=== PATIENT | male | born 1985 | race Caucasian/White ===

== ENCOUNTER 2016-12-17 11:45 | Emergency (ER) | payer OTHER ==
--- NOTE | 2016-12-19 15:53 | NUR ---
Received SAD person referral. Pt went to [facility] for mental health treatment.
--- NOTE | 2016-12-20 13:18 | ER ---
ADMIT: 12/17/2016 RM/LOC: ER [facility] MR#: [id number] [facility] [address] [place], [place] [address] [address] [place] [address] Emergency Room Report SEX: M AGE: 31 : 1985 DATE: 12/17/2016 HISTORY OF PRESENT ILLNESS: The patient is a 31-year-old male, who was brought in by his , despondent behavior, worse depression. This is the anniversary of a best friend's suicide that he blames himself for the suicide as his friend before he committed suicide tried to get a hold of him and was unable to, so this is pretty clear in his mind. His brought him in and he is willing to get psych care after he called the [place] Hotline asking for help. Of course, the hotline sent him to the emergency room at [place] to get evaluated. We did contact the police who were here to speak with patient and his . He is very cooperative throughout the whole admission. He does not have a plan. He denies a plan. He denies an attempt in the past but he has these thoughts he said, flashbacks for when he was in the [place], serving and the thoughts of suicide that come to his head and he can get rid of it. He says it has been going on for the last 5 years but is worse now that he remembers his friend and he blames himself for his friend's . PAST MEDICAL HISTORY: Kidney stones. MEDICATIONS: He had used: 1. Flexeril. 2. Gabapentin. 3. Hydrocodone. 4. Pantoprazole. 5. Prazosin. 6. Tamsulosin. 7. Sucralfate. ALLERGIES: HE HAS NO ALLERGIES. SOCIAL HISTORY: He is . Denies smoking. He says he has some issues with left leg as far as pain and that is why he takes pain medication. PHYSICAL EXAMINATION: VITAL SIGNS: Blood pressure 174/87 with heart rate of ADMIT: 12/17/2016 RM/LOC: ER [facility] MR#: [id number] [address] [address] [address] [place] [address] Emergency Room Report SEX: M AGE: 31 : 1985 87, respirations 18, temp is 98.6, O2 sats 97%. GENERAL: A very pleasant, a little bit of anxiety, oriented x4. See T-sheet for the physical examination. LABS: EPC labs were done. Hemoglobin 13.1, hematocrit is 38.1. Chemistry is normal. UA; specific gravity of 1.001. TSH 1.37 with free T4 of 1.18. Aspirin less than 1.7 with acetaminophen 2.0. Toxicology negative. ETOH none. ASSESSMENT: Suicidal ideation, chronic depression. Dr. Rimma Espinosa at the [facility] in [place] accept the patient. Documentation to follow up with the patient. He will be going via ambulance. KIZZY Gar / Leonid Snow MD / modl JOB #: [id number] CC: Leonid Snow MD, Attending Physician [facility] Physician, Family Physician
== END 2016-12-17 15:45 ==
LOC: ER 11:45
DX: R45.851 Suicidal ideations (principal); F32.9 Major depressive disorder, single episode, unspecified; Z87.442 Personal history of urinary calculi; Z79.899 Other long term (current) drug therapy

== ENCOUNTER 2017-01-20 10:38 | Emergency (ER) | payer OTHER ==
--- NOTE | 2017-01-27 08:46 | ER ---
ADMIT: 01/20/2017 RM/LOC: ER [facility] MR#: [id number] [address] [facility] [address] [place], [place] [address] [address] [place] [address] Emergency Room Report SEX: M AGE: 31 : 1985 DATE: 01/20/2017 PRIMARY PROVIDER: [facility]. HISTORY OF PRESENT ILLNESS: Mr. Perez is a 31-year-old male, who presents to emergency room with dysuria, blood in the urine, which did scare him. This happened last night and towards this morning. He urinated about 1 ounce of blood. He has pain in the right groin and testicle. He has had some problems urinating in the past, has had flank pain with right lower quadrant pain. He says the pain is throbbing. He had kidney stones in past. PAST MEDICAL HISTORY: He has a history of depression and posttraumatic stress disorder, had a hernia repair on the left side, gastric ulcers that were cauterized in the past due to too much of NSAIDs that he was taking for his pain, hip surgery x2. SOCIAL HISTORY: He quit smoking 3 months ago. PHYSICAL EXAMINATION: He is extremely anxious. Vitals within normal limits. He does have right costovertebral tenderness with radiation to the right groin area. The rest of the examination is within normal limits. LAB DATA: Urine shows protein 1+ with blood 3+, leukocytes esterase trace, BUN 1810. A CT scan does show hydronephrosis and kidney stone that has not moved much from October when he had a renal CT done. It is about 4 mm. He was discharged with instructions to follow up with Dr. Mcnair at [facility]. Cipro 500 mg b.i.d., hydrocodone for pain, and Flomax for 5 days. DIAGNOSIS: Right ureteral stone with hydronephrosis and hematuria. Bernie B Zima, PA / Cesar Tom MD / jhonl JOB #: [id number] CC: Cesar Tom MD, Attending Physician [facility] Physician, Family Physician
== END 2017-01-20 12:20 | disposition home or self-care (01) ==
LOC: ER 10:38
DX: N13.2 Hydronephrosis with renal and ureteral calculous obstruction (principal); F43.10 Post-traumatic stress disorder, unspecified; F32.9 Major depressive disorder, single episode, unspecified; Z98.890 Other specified postprocedural states; Z87.891 Personal history of nicotine dependence; Z79.899 Other long term (current) drug therapy